=== PATIENT | female | born 1960 | race African-American/Black ===

== ENCOUNTER → 2016-06-10 | Outpatient (CLI) | payer OTHER | LOC: RAD 09:46 | PROVIDERS: ATTEND General Practice | DX: M25.562 Pain in left knee (principal) ==

== ENCOUNTER 2017-01-25 18:56 | Emergency (ER) | payer SELFPAY ==
[2017-01-25] MEDS ORDERED: CLINDAMYCIN 600 MG/D5W RTU 600 MG/50 ML RTUPB IV ONE (23:12)
[2017-01-25] MEDS ORDERED: ONDANSETRON HCL INJ/PF 4 MG/2 ML SDV IV ONE (23:12)
[2017-01-25] MEDS ORDERED: MORPHINE SULFATE 10 MG/ML INJ IV ONE (23:12)
[2017-01-26 00:15] LABS: ABSOLUTE EOSINOPHILS # (AUTO) 0.1 10^3/uL (0.0-0.6); ABSOLUTE LYMPHOCYTES (AUTO) 1.8 10^3/uL (0.5-4.7); ABSOLUTE MONOCYTES (AUTO) 0.4 10^3/uL (0.1-1.4); ABSOLUTE NEUT (AUTO) 4.4 10^3/uL (1.7-8.2); BASOPHILS % (AUTO) 0.6 % (0-2); EOSINOPHILS % (AUTO) 1.8 % (0-6); HEMATOCRIT 41.2 % (36.0-47.0); HEMOGLOBIN 13.8 g/dL (12.0-15.5); HGB HCT DIFFERENCE 0.2; MEAN CORPUSCULAR HEMOGLOBIN 29.8 pg (27.0-33.4); MEAN CORPUSCULAR HGB CONC 33.6 g/dL (32.0-36.0); MEAN CORPUSCULAR VOLUME 89 fl (80-97); MONOCYTES % (AUTO) 6.4 % (3-13); RED BLOOD COUNT 4.64 10^6/uL (3.72-5.28); RED CELL DISTRIBUTION WIDTH 13.9 % (11.5-14.0); SEGMENTED NEUTROPHILS % (AUTO) 65.2 % (42-78); WHITE BLOOD COUNT 6.8 10^3/uL (4.0-10.5)
[2017-01-26 01:15] LABS: ALANINE AMINOTRANSFERASE 26 U/L (9-52); ALBUMIN 3.7 g/dL (3.5-5.0); ALKALINE PHOSPHATASE 159 U/L (38-126); ANION GAP 13 (5-19); ASPARTATE AMINO TRANSFERASE 13 U/L (14-36); BILIRUBIN,DIRECT 0.4 mg/dL (0.0-0.4); BILIRUBIN,TOTAL 0.4 mg/dL (0.2-1.3); BLOOD UREA NITROGEN 15 mg/dL (7-20); CALCIUM 9.6 mg/dL (8.4-10.2); CARBON DIOXIDE 24 mmol/L (22-30); CHLORIDE 108 mmol/L (98-107); CREATININE RESULT 0.73 mg/dL (0.52-1.25); GLUCOSE 178 mg/dL (75-110); POTASSIUM 4.1 mmol/L (3.6-5.0); SODIUM 144.6 mmol/L (137-145); TOTAL PROTEIN 7.5 g/dL (6.3-8.2)
[2017-01-26] MEDS ORDERED: KETOROLAC TROMETHAMINE INJ/PF 30 MG/1 ML SDV IV ONE (03:12)
[2017-01-26] MEDS ORDERED: OXYCODONE-ACETAMINOPHEN 5-325 MG TABLET PO ONE (03:12)
--- NOTE | 2017-01-26 03:23 | RADIOLOGY REPORT (SQ) ---
EXAM DESCRIPTION: CT FACIAL AREA WITH COMPLETED DATE/TIME: 01/26/2017 2:43 am REASON FOR STUDY: ? abscess right mandibular/submandibular area. COMPARISON: None. TECHNIQUE: Post contrast images through the facial bones and orbits windowed for bone and soft tissu e. Additional coronal and sagittal reconstructed images reviewed. All images stored on PACS. All CT scanners at this facility use dose modulation, iterative reconstruction, and/or weight based d osing when appropriate to reduce radiation dose to as low as reasonably achievable (ALARA). [facility]: Dose Right [facility]: CareDose [facility]: Dose Right [facility]: Teradose 4D [facility]: [employer] CONTRAST TYPE AND DOSE: contrast/concentration: Isovue 370.00 mg/ml; Total Contrast Delivered: 75.0 ml; Total Saline Delivered: 55.1 ml RENAL FUNCTION: Creatinine 0.7 RADIATION DOSE: Up-to-date CT equipment and radiation dose reduction techniques were employed. CTDIv ol: 12.3 mGy. DLP: 272 mGy-cm. . LIMITATIONS: None. FINDINGS: FACIAL BONES: No fracture or bone lesion. ORBITS: Intact. No fracture. Symmetric intact globes and retroorbital soft tissues. PARANASAL SINUSES: Clear. No significant mucosal thickening, mass or fluid. No nasal polyps. Maxilla ry sinus outlets are patent. SOFT TISSUES: No mass or edema. No abnormal enhancement. INFERIOR BRAIN: Limited view. No acute findings. OTHER: Mild bilateral submandibular and mild submental lymphadenopathy includes a 1.2 x 0.7 cm right submandibular lymph node, image 52 of series 2. Numerous small periapical lucencies of remaining den tition throughout the mandible and maxilla may indicate small periapical abscesses measuring up to 0. 8 cm in the left paracentral anterior maxilla and 0.4 cm in the right paracentral anterior mandible a nd 0.8 cm associated with a right mandibular molar are, image 43 of series 2. Partially edentulous. IMPRESSION: Multiple scattered periapical abscesses (periapical rarefying osteitis) pattern. Mild b ilateral submandibular heads and submental lymphadenopathy. COMMENT: Discussed with ILSA CALIX MD at03:13 on 01/26/2017. TECHNICAL DOCUMENTATION: JOB ID: [id number] Quality ID # [id number]: Final reports with documentation of one or more dose reduction techniques (e.g., Au tomated exposure control, adjustment of the mA and/or kV according to patient size, use of iterative reconstruction technique) [address] [employer] All Rights Reserved
--- NOTE | 2017-01-26 03:54 | ER Document Report ---
ED General - General Chief Complaint: Abscess Stated Complaint: POSSIBLE ABSCESS Time Seen by Provider: 01/25/17 23:11 Mode of Arrival: Ambulatory Information source: Patient Notes: This is a 56-year-old female with a history of high blood pressure and insulin requiring diabetes and significant dental caries who presents to the emergency room with to the right mandible and swelling to the lower face. Patient denies fever. The pain is been going on for the last couple of days. TRAVEL OUTSIDE OF THE [place] IN LAST 30 DAYS: No - HPI Onset: Last week Onset/Duration: Gradual Quality of pain: Dull Severity: Moderate Pain Level: 2 Associated symptoms: denies: Chills, Fever, Shortness of breath Exacerbated by: Denies Relieved by: Denies Similar symptoms previously: Yes Recently seen / treated by doctor: No - Related Data Allergies/Adverse Reactions: tramadol [Tramadol] Adverse Reaction (Intermediate, Verified 03/19/12 14:39) Past Medical History - General Information source: Patient - Social History Smoking Status: Never Smoker Cigarette use (# per day): No Chew tobacco use (# tins/day): No Frequency of alcohol use: None Drug Abuse: None Lives with: Family Family History: Reviewed & Not Pertinent Patient has suicidal ideation: No Patient has homicidal ideation: No - Past Medical History Cardiac Medical History: Reports: Hx Hypertension Pulmonary Medical History: Reports: None EENT Medical History: Reports: Other - Dental caries Endocrine Medical History: Reports: Hx Diabetes Mellitus Type 2 Renal/ Medical History: Reports: None Malignancy Medical History: Reports: None GI Medical History: Reports: None Musculoskeltal Medical History: Reports None Skin Medical History: Reports None Psychiatric Medical History: Reports: None Traumatic Medical History: Reports: None Surgical Hx: Negative - Immunizations Immunizations up to date: Yes Hx Diphtheria, Pertussis, Tetanus Vaccination: Yes Review of Systems - Review of Systems Constitutional: denies: Chills, Fever EENT: No symptoms reported. denies: Throat pain Cardiovascular: No symptoms reported Respiratory: No symptoms reported Gastrointestinal: No symptoms reported Genitourinary: No symptoms reported Female Genitourinary: No symptoms reported Musculoskeletal: No symptoms reported Skin: No symptoms reported Hematologic/Lymphatic: No symptoms reported Neurological/Psychological: No symptoms reported Physical Exam - Vital signs Notes: Physical exam: GENERAL: 56-year-old female, alert and oriented 3, no acute distress HEAD: Atraumatic, normocephalic. EYES: Pupils equal round and reactive to light, extraocular movements intact, sclera anicteric, conjunctiva are normal. ENT: Patient has significant dental caries to the lower teeth. There is tenderness along the caries along the canines as well as the premolars and molars. Is no obvious swelling in the floor the mouth. There is tenderness over the teeth that are present. There is no pus drainage. Moist mucous membranes. Patient swallows without difficulty. NECK: The submandibular area is soft without any fluctuance. Normal range of motion, supple without lymphadenopathy. No stridor. LUNGS: Breath sounds clear to auscultation bilaterally and equal. No wheezes rales or rhonchi. HEART: Regular rate and rhythm without murmurs, rubs or gallops. ABDOMEN: Soft, normoactive bowel sounds. No tenderness to palpation. No guarding, no rebound. No masses appreciated. EXTREMITIES: Normal range of motion, no pitting or edema. No clubbing or cyanosis. NEUROLOGICAL: Cranial nerves II through XII grossly intact. Normal speech, normal gait. PSYCH: Normal mood, normal affect. SKIN: Warm, Dry, normal turgor, no rashes or lesions noted. Course - Laboratory Result Diagrams: 01/25/17 23:50 01/25/17 23:50 Laboratory results interpreted by me: 01/25/17 23:50 Chloride 108 H Glucose 178 H AST 13 L Alkaline Phosphatase 159 H - Diagnostic Test Radiology reviewed: Image reviewed, Reports reviewed - CT with contrast of the face getting the soft tissues of the neck up in the jaw show a lot of apical tooth disease without any abscess extending into the soft tissues of the neck. Discharge - Discharge Clinical Impression: Dental caries Condition: Stable Disposition: HOME, SELF-CARE Instructions: Dentist, Oral Narcotic Medication ([facility]), Toothache ([facility]) Additional Instructions: As we discussed, he will need to take an antibiotic for the next week. I do need you to follow-up with your dentist. I left A prescription for both clindamycin (the antibiotic) and the pain medicine. Also take ibuprofen 600 mg every 6 hours and you can take Tylenol every 4-6 hours. I wrote a prescription for your blood pressure medicine as well as the insulin for sliding scale. Left the number for primary care doctor: Dr. Brown who is affiliated with this hospital. Return to the emergency room for worsening pain, swelling or any concerns or getting worse. Prescriptions: Oxycodone HCl 5 mg PO Q6HP PRN #25 tablet PRN Reason: Clindamycin HCl 300 mg PO Q6 #28 capsule Insulin Regular, Human [Novolin R (Reg) Insulin 100 unit/mL] 10 unit SUBCUT .SLD SCALE #10 ml Valsartan [Diovan 160 mg Tablet] 160 mg PO DAILY #30 tablet Referrals: LUCIANA BROWN MD [ACTIVE STAFF] - Follow up as needed (This is the number of a good primary care doctor for diabetes as well as blood pressure)
[2017-01-26 04:42] VITALS: BP 143/98
== END 2017-01-26 04:37 | disposition home or self-care (01) ==
LOC: ER 18:56
DX: K02.9 Dental caries, unspecified (principal); I10 Essential (primary) hypertension; E11.9 Type 2 diabetes mellitus without complications; Z88.6 Allergy status to analgesic agent
CPT/HCPCS: 99283; 96375; 96365; 36415; 87040; 85025; 80053; 70487; J1885; J2270; J2405

== ENCOUNTER 2017-10-09 22:03 | Inpatient (IN) | payer MEDICAID ==
[2017-10-09] MEDS ORDERED: ONDANSETRON HCL INJ/PF 4 MG/2 ML SDV IV ONE (23:11)
[2017-10-09] MEDS ORDERED: METOCLOPRAMIDE HCL ORAL SOLN 10 MG/10 ML UDCUP PO ONE (23:11)
[2017-10-09] MEDS ORDERED: LIDOCAINE 2% VISCOUS SOLN 20 ML UDCUP PO ONE (23:11)
[2017-10-09] MEDS ORDERED: MAG HYDROX/AL HYDROX/SIMETH SUSP 30 ML UDCUP PO ONE (23:11)
--- NOTE | 2017-10-09 23:14 | ER Document Report ---
ED General - General Chief Complaint: Epigastric Pain Stated Complaint: ABDOMINAL PAIN Time Seen by Provider: 10/09/17 23:03 Notes: Patient is 57-year-old female presents with complaint of severe epigastric pain. 's been ongoing for a few days. She said occurs whenever she eats. Says like burning sensation from the epigastrium. She feels better if she burps. No history of abdominal surgeries. She is a diabetic. She does take omeprazole for acid reflux. No history of bleeding ulcers. No black or tarry stools. No bloody stools. No vomiting. Some nausea. No chest pain. No other complaints this time. TRAVEL OUTSIDE OF THE [place] IN LAST 30 DAYS: No - Related Data Allergies/Adverse Reactions: tramadol [Tramadol] Adverse Reaction (Intermediate, Verified 03/19/12 14:39) Past Medical History - Social History Smoking Status: Current Every Day Smoker Frequency of alcohol use: None Drug Abuse: None Family History: Reviewed & Not Pertinent Patient has suicidal ideation: No Patient has homicidal ideation: No - Past Medical History Cardiac Medical History: Reports: Hx Hypertension Endocrine Medical History: Reports: Hx Diabetes Mellitus Type 2 Renal/ Medical History: Denies: Hx Peritoneal Dialysis - Immunizations Immunizations up to date: Yes Hx Diphtheria, Pertussis, Tetanus Vaccination: Yes Review of Systems - Review of Systems Notes: My Normal Review Basic REVIEW OF SYSTEMS: CONSTITUTIONAL : Denies fever, chills, or sweats. Denies recent illness. EENT: Denies eye, ear, throat, or mouth pain or symptoms. Denies nasal or sinus congestion. CARDIOVASCULAR: Denies chest pain. RESPIRATORY: Denies cough, cold, or chest congestion. Denies shortness of breath, difficulty breathing, or wheezing. GASTROINTESTINAL: Epigastric abdominal pain. Denies nausea, vomiting, or diarrhea. GENITOURINARY: Denies difficulty urinating, painful urination, burning, frequency, or blood in urine. MUSCULOSKELETAL: Denies neck or back pain or joint pain or swelling. SKIN: Denies rash or skin lesions. NEUROLOGICAL: Denies altered mental status or loss of consciousness. Denies headache. Denies weakness or paralysis or loss of use of either side. Denies problems with gait or speech. Denies sensory or motor loss. ALL OTHER SYSTEMS REVIEWED AND NEGATIVE. Physical Exam - Vital signs Vitals: Temp Pulse Resp BP Pulse Ox 98.7 F 96 18 157/92 H 97 10/09/17 22:10 10/09/17 22:10 10/09/17 22:10 10/09/17 22:10 10/09/17 22:10 - Notes Notes: General Appearance: Well nourished, alert, cooperative, no acute distress, mild obvious discomfort. Vitals: reviewed, See vital signs table. Head: no swelling or tenderness to the head Eyes: PERRL, EOMI, Conjuctiva clear Mouth: No decreasd moisture Lungs: No wheezing, No rales, No rhonci, No accessory muscle use, good air exchange bilaterally. Heart: Normal rate, Regular rythm, No murmur, no rub Abdomen: Normal BS, soft, No rigidity, mild to moderate epigastric abdominal tenderness to palpation. Remainder of abdomen is nontender., No guarding, no rebound, no abdominal masses, no organomegaly Extremities: strength 5/5 in all extremities, good pulses in all extremities, no swelling or tenderness in the extremities, no edema. Skin: warm, dry, appropriate color, no rash Neuro: speech clear, oriented x 3, normal affect, responds appropriately to questions. Course - Re-evaluation Re-evalutation: 10/10/17 03:29 Patient is feeling improved. Nausea is improved. Her pain is not severe and intense at this time. Her lipase is significantly elevated at just under 4000. Exact cause of her pancreatitis is not clear. She has not had excessive vomiting. She is not an alcoholic. She does not have any evidence of gallbladder disease. CT scan did not show any evidence of cyst or tumor mass in the pancreas. I did speak with Dr. Addison who is covering for Dr. Wilson. He agrees to admit the patient for further workup and treatment of her pancreatitis. Patient is agreeable to plan. Dictation of this chart was performed using voice recognition software; therefore, there may be some unintended grammatical errors. - Vital Signs Vital signs: Temp Pulse Resp BP Pulse Ox 98.7 F 96 18 157/92 H 97 10/09/17 22:10 10/09/17 22:10 10/09/17 22:10 10/09/17 22:10 10/09/17 22:10 - Laboratory Result Diagrams: 10/09/17 23:06 10/09/17 23:06 Laboratory results interpreted by me: 10/09/17 23:06 Glucose 163 H Direct Bilirubin 0.5 H Alkaline Phosphatase 142 H Total Protein 8.5 H Lipase 3852.0 H - EKG Interpretation by Me Additional EKG results interpreted by me: 10/10/17 00:08 EKG is reviewed and interpreted by me. EKG shows normal sinus rhythm with a rate of [address] segment elevation or depression. Small T-wave inversions in lead I and aVL. AK interval, QRS duration, QTc intervals are within normal range. No old EKG available for comparison. Discharge - Discharge Clinical Impression: Pancreatitis Qualifiers: Chronicity: acute Pancreatitis type: unspecified pancreatitis type Acute pancreatitis complication: unspecified Qualified Code(s): K85.90 - Acute pancreatitis without necrosis or infection, unspecified Condition: Stable Disposition: ADMITTED OBSERVATION Admitting Provider: Steve Unit Admitted: Medical Floor
[2017-10-09 23:19] LABS: ABSOLUTE BASOPHILS # (AUTO) 0.1 10^3/uL (0.0-0.2); ABSOLUTE EOSINOPHILS # (AUTO) 0.1 10^3/uL (0.0-0.6); ABSOLUTE LYMPHOCYTES (AUTO) 1.9 10^3/uL (0.5-4.7); ABSOLUTE MONOCYTES (AUTO) 0.5 10^3/uL (0.1-1.4); ABSOLUTE NEUT (AUTO) 4.7 10^3/uL (1.7-8.2); BASOPHILS % (AUTO) 0.9 % (0-2); EOSINOPHILS % (AUTO) 1.2 % (0-6); HEMATOCRIT 42.1 % (36.0-47.0); HEMOGLOBIN 13.9 g/dL (12.0-15.5); LYMPHOCYTES % (AUTO) 25.9 % (13-45); MEAN CORPUSCULAR HEMOGLOBIN 28.5 pg (27.0-33.4); MEAN CORPUSCULAR HGB CONC 33.1 g/dL (32.0-36.0); MEAN CORPUSCULAR VOLUME 86 fl (80-97); MONOCYTES % (AUTO) 6.7 % (3-13); PLATELET COUNT 263 10^3/uL (150-450); RED BLOOD COUNT 4.89 10^6/uL (3.72-5.28); SEGMENTED NEUTROPHILS % (AUTO) 65.3 % (42-78); TOTAL CELLS COUNTED % (AUTO) 100 %; WHITE BLOOD COUNT 7.3 10^3/uL (4.0-10.5)
[2017-10-09 23:37] LABS: ALANINE AMINOTRANSFERASE 26 U/L (9-52); ALBUMIN 4.2 g/dL (3.5-5.0); ALKALINE PHOSPHATASE 142 U/L (38-126); ANION GAP 12 (5-19); ASPARTATE AMINO TRANSFERASE 22 U/L (14-36); BILIRUBIN,DIRECT 0.5 mg/dL (0.0-0.4); BILIRUBIN,TOTAL 0.6 mg/dL (0.2-1.3); BLOOD UREA NITROGEN 11 mg/dL (7-20); CARBON DIOXIDE 24 mmol/L (22-30); CHLORIDE 107 mmol/L (98-107); GLUCOSE 163 mg/dL (75-110); POTASSIUM 4.3 mmol/L (3.6-5.0); SODIUM 143.2 mmol/L (137-145); TOTAL PROTEIN 8.5 g/dL (6.3-8.2)
[2017-10-10] MEDS ORDERED: DIPHENHYDRAMINE HCL 50 MG/ML VIAL IV ONE (00:58)
[2017-10-10] MEDS ORDERED: NORMAL SALINE 1000 ML 1,000 ML IV ONE (00:59)
[2017-10-10] MEDS ORDERED: METHYLPREDNISOLONE INJ 125 MG/2 ML SDV IV ONE (00:59)
--- NOTE | 2017-10-10 01:34 | RADIOLOGY REPORT (SQ) ---
EXAM DESCRIPTION: CT ABDOMEN PELVIS WITH IV CONTRAST CLINICAL HISTORY: 57 years Female, elevated lipase, abdominal pain Comparison: None. Technique: IV contrast. Coronal and sagittal reformat. This exam was performed according to our departmental dose-optimization program, which includes automated exposure control, adjustment of the mA and/or kV according to patient size and/or use of iterative reconstruction technique.[facility]: Dose Right [facility]: CareDose [facility]: Dose Right [facility]: Teradose 4D [facility]: [employer] LIMITATIONS: None. Findings: No free fluid. Normal appendix. 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 Atherosclerosis. Mild lower lumbar spondylosis. Inferior thorax, liver, gallbladder, pancreas, spleen, adrenals, renal system, gastrointestinal tract, pelvic organs, lymphatics, vasculature, and musculoskeleton appear otherwise unremarkable. IMPRESSION: No acute findings.
--- NOTE | 2017-10-10 03:19 | RADIOLOGY REPORT (SQ) ---
EXAM DESCRIPTION: US ABDOMEN DOPPLER LIMITED CLINICAL HISTORY: 57 years Female, RUQ, pancreatitis Comparison: CT, same day. LIMITATIONS: None. FINDINGS: Gallbladder, negative sonographic Garcia's test, mild hepatic steatosis, a 0.5-cm diameter common bile duct, no intrahepatic ductal dilation, 13-cm right kidney, partially obscured pancreas, visualized vasculature/abdominal aorta, and no significant ascites as correlated with CT appear otherwise unremarkable. IMPRESSION: No acute findings. Hepatic steatosis.
[2017-10-10] MEDS ORDERED: DEXTROSE 50%-WATER 25 GM/50 ML DISP.SYRIN IV PRN ×4 (04:25→10:54)
[2017-10-10] MEDS ORDERED: GLUCAGON,HUMAN RECOMB 1 MG INJ SUBCUT PRN (04:25)
[2017-10-10] MEDS ORDERED: DEXTROSE 40% GEL 15 GM TUBE PO PRN ×4 (04:25→10:54)
[2017-10-10] MEDS ORDERED: DEXTROSE 5%-NORMAL SALINE 1,000 ML IV PRN (04:40)
--- NOTE | 2017-10-10 08:47 | EKG REPORT ---
SEVERITY:- ABNORMAL ECG - SINUS RHYTHM LEFT ATRIAL ABNORMALITY PROBABLE LEFT VENTRICULAR HYPERTROPHY : Confirmed by: Sean Ogden MD 10-Oct-2017 08:46:43
[2017-10-10] MEDS: HYDROMORPHONE HCL INJ/PF 2 MG/ML AMPULE IV PRN ×2 (09:33→22:52)
[2017-10-10] MEDS ORDERED: GLUCAGON,HUMAN RECOMB 1 MG INJ IM PRN (10:54)
[2017-10-10] MEDS ORDERED: (PENDING PHARMACY ID) (Insulin Degludec [Tresiba Flextouch U-100] 30 UNIT) SQ SCH (11:00)
[2017-10-10] MEDS ORDERED: LANSOPRAZOLE 15 MG TAB.RAP.DR PO ONE (11:15)
[2017-10-10] MEDS ORDERED: LISINOPRIL 10 MG TABLET PO ONE (11:30)
[2017-10-10 11:41] LABS: INTERNATIONAL RATION (INR) 0.91; PROTHROMBIN TIME 12.7 SEC (11.4-15.4)
[2017-10-10 11:42] LABS: PARTIAL THROMBOPLASTIN TIME 27.8 SEC (23.5-35.8)
[2017-10-10] MEDS ORDERED: ENOXAPARIN SODIUM INJ 40 MG/0.4 ML DISP.SYRIN SUBCUT ONE (11:45)
[2017-10-10 11:53] LABS: LIPASE 733.1 U/L (23-300); PHOSPHORUS 4.4 mg/dL (2.5-4.5)
[2017-10-10] MEDS: NORMAL SALINE 1000 ML 1,000 ML IV PRN ×2 (12:02→22:53)
[2017-10-10 12:18] LABS: FREE T4 (FREE THYROXINE) 1.78 ng/dL (0.78-2.19)
[2017-10-10 12:19] LABS: CREATINE KINASE MB 0.49 ng/mL (<4.55)
[2017-10-10 12:23] LABS: TROPONIN I < 0.012 ng/mL
[2017-10-10 12:31] LABS: THYROID STIMULATING HORMONE 0.35 uIU/mL (0.47-4.68)
[2017-10-10] MEDS: INSULIN LISPRO 100 UNIT/ML 3 ML VIAL SUBCUT PRN ×3 (13:25→22:11)
--- NOTE | 2017-10-10 14:58 | PDOC H&P ---
History of Present Illness Admission Date/PCP: 10/10/17 03:34 History of Present Illness: AFR[place] BROWNING is a 57 year old female, She has a history of morbid obesity, type 2 diabetes mellitus, she came to the emergency room for evaluation of severe epigastric pain, in the emergency room a CAT scan of the abdomen and pelvis was done, it was negative for any acute pathology, she was found to have elevated serum lipase, 3852. The ultrasound of the gallbladder was negative for gallstones. She denies any passage of black tarry stool she unfortunately smoke cigarettes Past Medical History Cardiac Medical History: Reports: Hypertension Endocrine Medical History: Reports: Diabetes Mellitus Type 2, Obesity Psychiatric Medical History: Denies: Depression Social History Smoking Status: Current Every Day Smoker Cigars Per Day: 10 Last Time Smoked: 10/09/17 Frequency of Alcohol Use: None Hx Recreational Drug Use: No - Advance Directive Resuscitation Status: Full Code Family History Family History: Reviewed & Not Pertinent Parental Family History Reviewed: Yes Children Family History Reviewed: Yes Sibling(s) Family History Reviewed.: Yes Medication/Allergy Home Medications: Insulin Degludec [Tresiba Flextouch U-100] 30 unit SQ DAILY 10/10/17 Lisinopril [Prinivil 40 mg Tablet] 40 mg PO DAILY 10/10/17 Metformin HCl [Metformin HCl] 500 mg PO ONCE PRN 10/10/17 Omeprazole [Omeprazole] 20 mg PO DAILY 10/10/17 Tramadol HCl [Ultram 50 mg Tablet] 50 mg PO Q6HP PRN 10/10/17 Allergies/Adverse Reactions: tramadol [Tramadol] Adverse Reaction (Intermediate, Verified 10/10/17 03:43) Review of Systems Constitutional: ABSENT: chills, fever(s), headache(s), weight gain, weight loss Eyes: ABSENT: visual disturbances Ears: ABSENT: hearing changes Cardiovascular: ABSENT: chest pain, dyspnea on exertion, edema, orthropnea, palpitations Respiratory: ABSENT: cough, hemoptysis Gastrointestinal: PRESENT: abdominal pain. ABSENT: constipation, diarrhea, hematemesis, hematochezia, nausea, vomiting Genitourinary: ABSENT: dysuria, hematuria Musculoskeletal: ABSENT: joint swelling Integumentary: ABSENT: rash, wounds Neurological: ABSENT: abnormal gait, abnormal speech, confusion, dizziness, focal weakness, syncope Psychiatric: ABSENT: anxiety, depression, homidical ideation, suicidal ideation Endocrine: ABSENT: cold intolerance, heat intolerance, menstrual abnormalities, polydipsia, polyuria Hematologic/Lymphatic: ABSENT: easy bleeding, easy bruising, lymphadenopathy Physical Exam Vital Signs: Temp Pulse Resp BP Pulse Ox 98.4 F 72 18 140/75 H 99 10/10/17 11:24 10/10/17 11:24 10/10/17 11:24 10/10/17 11:24 10/10/17 11:24 Intake & Output 10/09/17 10/10/17 10/11/17 06:59 06:59 06:59 Weight 121.2 kg General appearance: PRESENT: no acute distress, well-developed, well-nourished Head exam: PRESENT: atraumatic, normocephalic Eye exam: PRESENT: conjunctiva pink, EOMI, PERRLA Ear exam: PRESENT: normal external ear exam Mouth exam: PRESENT: moist, tongue midline Neck exam: PRESENT: full ROM Respiratory exam: PRESENT: clear to auscultation prateek Cardiovascular exam: PRESENT: RRR, +S1, +S2 Pulses: PRESENT: normal dorsalis pedis pul, +2 pedal pulses bilateral Vascular exam: PRESENT: normal capillary refill GI/Abdominal exam: PRESENT: normal bowel sounds, soft, tenderness Rectal exam: PRESENT: deferred Neurological exam: PRESENT: alert, awake, oriented to person, oriented to place , oriented to time, oriented to situation, CN II-XII grossly intact Psychiatric exam: PRESENT: appropriate affect, normal mood Skin exam: PRESENT: dry, intact, warm Results Laboratory Results: 10/10/17 10/10/17 10/10/17 11:09 11:09 11:09 Phosphorus 4.4 Ammonia < 8.7 L Amylase 362 H Lipase 733.1 H TSH 0.35 L Free T4 1.78 10/10/17 10/10/17 10/10/17 11:09 11:09 11:09 Creatine Kinase 85 CK-MB (CK-2) 0.49 Troponin I < 0.012 NT-Pro-B Natriuret Pep 46 Impressions: Abdomen/Pelvis CT 10/10/17 00:20 IMPRESSION: No acute findings. Abdomen Ultrasound 10/10/17 01:36 IMPRESSION: No acute findings. Hepatic steatosis. Assessment & Plan - Diagnosis (1) Acute pancreatitis Qualifiers: Pancreatitis type: unspecified pancreatitis type Acute pancreatitis complication: no infection or necrosis Qualified Code(s): K85.90 - Acute pancreatitis without necrosis or infection, unspecified Is this a current diagnosis for this admission?: Yes Plan: She is admitted for the management of acute pancreatitis, she does not drink alcohol, there is no gallstones, she is no vomiting, there is no reason to keep n.p.o., she will eat regular diet as tolerated ,pain control with Dilaudid. The etiology of the pancreatitis is not clear (2) Diabetes mellitus type 2 in obese Is this a current diagnosis for this admission?: Yes
[2017-10-10 17:49] LABS: CREATINE KINASE MB 0.37 ng/mL (<4.55)
[2017-10-10 17:54] LABS: TROPONIN I < 0.012 ng/mL
[2017-10-10 22:38] LABS: APPEARANCE,URINE CLEAR; BILIRUBIN,URINE NEGATIVE (NEGATIVE); COLOR,URINE YELLOW; GLUCOSE, URINE 150 mg/dL (NEGATIVE); KETONES,URINE NEGATIVE (NEGATIVE); LEUKOCYTE ESTERASE,URINE NEGATIVE (NEGATIVE); NITRITE,URINE NEGATIVE (NEGATIVE); PROTEIN,URINE NEGATIVE (NEGATIVE); URINE SPECIFIC GRAVITY 1.025; UROBILINOGEN,URINE NEGATIVE mg/dL (<2.0)
[2017-10-10 22:52] LABS: URINE AMPHETAMINES SCREEN NEGATIVE; URINE BARBITURATES SCREEN NEGATIVE; URINE BENZODIAZEPINES SCREEN NEGATIVE; URINE COCAINE SCREEN NEGATIVE; URINE MARIJUANA (THC) SCREEN NEGATIVE; URINE METHADONE SCREEN NEGATIVE; URINE PHENCYCLIDINE SCREEN NEGATIVE
[2017-10-10 23:55] LABS: CREATINE KINASE MB 0.44 ng/mL (<4.55)
[2017-10-10 23:58] LABS: TROPONIN I < 0.012 ng/mL
[2017-10-11] MEDS ORDERED: LANSOPRAZOLE 15 MG TAB.RAP.DR PO SCH (06:00)
[2017-10-11 07:03] LABS: ABSOLUTE BASOPHILS # (AUTO) 0.1 10^3/uL (0.0-0.2); ABSOLUTE MONOCYTES (AUTO) 0.5 10^3/uL (0.1-1.4); ABSOLUTE NEUT (AUTO) 4.1 10^3/uL (1.7-8.2); BASOPHILS % (AUTO) 0.8 % (0-2); EOSINOPHILS % (AUTO) 0.4 % (0-6); HEMATOCRIT 37.5 % (36.0-47.0); HEMOGLOBIN 12.4 g/dL (12.0-15.5); LYMPHOCYTES % (AUTO) 29.8 % (13-45); MEAN CORPUSCULAR HEMOGLOBIN 28.7 pg (27.0-33.4); MEAN CORPUSCULAR VOLUME 87 fl (80-97); MONOCYTES % (AUTO) 7.9 % (3-13); PLATELET COUNT 242 10^3/uL (150-450); RED BLOOD COUNT 4.32 10^6/uL (3.72-5.28); RED CELL DISTRIBUTION WIDTH 13.9 % (11.5-14.0); SEGMENTED NEUTROPHILS % (AUTO) 61.1 % (42-78); TOTAL CELLS COUNTED % (AUTO) 100 %; WHITE BLOOD COUNT 6.7 10^3/uL (4.0-10.5)
[2017-10-11 07:26] LABS: ALANINE AMINOTRANSFERASE 24 U/L (9-52); ALBUMIN 3.1 g/dL (3.5-5.0); ALKALINE PHOSPHATASE 105 U/L (38-126); ASPARTATE AMINO TRANSFERASE 11 U/L (14-36); BILIRUBIN,DIRECT 0.2 mg/dL (0.0-0.4); BILIRUBIN,TOTAL 0.2 mg/dL (0.2-1.3); TOTAL PROTEIN 6.4 g/dL (6.3-8.2); TRIGLYCERIDES 113 mg/dL (<150)
[2017-10-11] MEDS ORDERED: LISINOPRIL 10 MG TABLET ONE (07:28)
[2017-10-11 07:37] LABS: DIRECT LDL 107 mg/dL (<100)
[2017-10-11] MEDS ORDERED: LISINOPRIL 10 MG TABLET PO SCH (10:00)
[2017-10-11] MEDS ORDERED: ENOXAPARIN SODIUM INJ 40 MG/0.4 ML DISP.SYRIN SUBCUT SCH (10:00)
[2017-10-11 11:54] VITALS: BP 187/102
[2017-10-11] MEDS: INSULIN LISPRO 100 UNIT/ML 3 ML VIAL SUBCUT PRN (12:05)
[2017-10-11] MEDS ORDERED: AMLODIPINE BESYLATE 10 MG TABLET PO ONE (14:00)
--- NOTE | 2017-10-11 14:38 | PDOC DISCHARGE SUMMARY ---
General - Admit/Disc Date/PCP Admission Date/Primary Care Provider: 10/10/17 03:34 Discharge Date: 10/11/17 - Discharge Diagnosis (1) Acute pancreatitis Is this a current diagnosis for this admission?: Yes (2) Diabetes mellitus type 2 in obese Is this a current diagnosis for this admission?: Yes (3) Hypertensive urgency Is this a current diagnosis for this admission?: Yes - Additional Information Resuscitation Status: Full Code Prescriptions: Amlodipine Besylate [Norvasc 10 mg Tablet] 10 mg PO DAILY #30 tablet Home Medications: Insulin Degludec [Tresiba Flextouch U-100] 30 unit SQ DAILY 10/10/17 Metformin HCl 500 mg PO ONCE PRN 10/10/17 Omeprazole 20 mg PO DAILY 10/10/17 Tramadol HCl [Ultram 50 mg Tablet] 50 mg PO Q6HP PRN 10/10/17 Amlodipine Besylate [Norvasc 10 mg Tablet] 10 mg PO DAILY #30 tablet 10/11/17 Lisinopril [Prinivil 40 mg Tablet] 40 mg PO BID #60 10/11/17 History of Present Illness History of Present Illness: AFRICA BROWNING is a 57 year old female, She has a history of morbid obesity, type 2 diabetes mellitus, she came to the emergency room for evaluation of severe epigastric pain, in the emergency room a CAT scan of the abdomen and pelvis was done, it was negative for any acute pathology, she was found to have elevated serum lipase, 3852. The ultrasound of the gallbladder was negative for gallstones. She denies any passage of black tarry stool she unfortunately smoke cigarettes Hospital Course Hospital Course: Patient was admitted for the management of acute pancreatitis, the ultrasound of the gallbladder was negative for gallstones, the CAT scan of the abdomen and pelvis showed a normal pancreas. There was no vomiting, regular diet was resumed soon after admission, she tolerated regular diet without any discomfort. The blood pressure was elevated in the hypertensive urgency range, she is advised to increase lisinopril to twice a day, she presently takes lisinopril 40 mg once a day this will be adjusted to twice a day she was also started on amlodipine. She presently stable she is pain-free she be discharged home today Physical Exam Vital Signs: Temp Pulse Resp BP Pulse Ox 98.0 F 80 16 187/102 H 97 10/11/17 11:49 10/11/17 11:53 10/11/17 11:49 10/11/17 11:53 10/11/17 11:49 Intake & Output 10/10/17 10/11/17 10/12/17 06:59 06:59 06:59 Intake Total 150 Balance 150 Weight 126.3 kg General appearance: PRESENT: no acute distress, well-developed, well-nourished Head exam: PRESENT: atraumatic, normocephalic Eye exam: PRESENT: conjunctiva pink, EOMI, PERRLA Ear exam: PRESENT: normal external ear exam Mouth exam: PRESENT: moist, tongue midline Neck exam: PRESENT: full ROM Cardiovascular exam: PRESENT: RRR, +S1, +S2 Pulses: PRESENT: normal dorsalis pedis pul, +2 pedal pulses bilateral Vascular exam: PRESENT: normal capillary refill GI/Abdominal exam: PRESENT: normal bowel sounds, soft Rectal exam: PRESENT: deferred Neurological exam: PRESENT: alert, awake, oriented to person, oriented to place , oriented to time, oriented to situation, CN II-XII grossly intact Psychiatric exam: PRESENT: appropriate affect, normal mood Skin exam: PRESENT: dry, intact, warm Results Laboratory Results: 10/11/17 06:25 10/10/17 10/11/17 10/11/17 22:15 06:25 06:25 WBC 6.7 RBC 4.32 Hgb 12.4 Hct 37.5 MCV 87 MCH 28.7 MCHC 33.0 RDW 13.9 Plt Count 242 Seg Neutrophils % 61.1 Lymphocytes % 29.8 Monocytes % 7.9 Eosinophils % 0.4 Basophils % 0.8 Absolute Neutrophils 4.1 Absolute Lymphocytes 2.0 Absolute Monocytes 0.5 Absolute Eosinophils 0.0 Absolute Basophils 0.1 Magnesium 2.0 Total Bilirubin 0.2 AST 11 L ALT 24 Alkaline Phosphatase 105 Total Protein 6.4 Albumin 3.1 L Triglycerides 113 Cholesterol 196.30 LDL Cholesterol Direct 107 H VLDL Cholesterol 23.0 HDL Cholesterol 51 Urine Color YELLOW Urine Appearance CLEAR Urine pH 5.0 Ur Specific [place] 1.025 Urine Protein NEGATIVE Urine Glucose (UA) 150 H Urine Ketones NEGATIVE Urine Blood NEGATIVE Urine Nitrite NEGATIVE Ur Leukocyte Esterase NEGATIVE Urine WBC (Auto) 1 10/10/17 10/10/17 10/10/17 11:09 11:09 11:09 Creatine Kinase 85 CK-MB (CK-2) 0.49 Troponin I < 0.012 NT-Pro-B Natriuret Pep 46 10/10/17 10/10/17 10/10/17 17:05 17:05 23:14 Creatine Kinase 82 73 CK-MB (CK-2) 0.37 Troponin I < 0.012 NT-Pro-B Natriuret Pep 10/10/17 23:14 Creatine Kinase CK-MB (CK-2) 0.44 Troponin I < 0.012 NT-Pro-B Natriuret Pep Impressions: Abdomen/Pelvis CT 10/10/17 00:20 IMPRESSION: No acute findings. Abdomen Ultrasound 10/10/17 01:36 IMPRESSION: No acute findings. Hepatic steatosis. Qualifiers - * PATIENT BEING DISCHARGED WITH ANY OF THE FOLLOWING DIAGNOSIS: No
[2017-10-12] MEDS ORDERED: AMLODIPINE BESYLATE 10 MG TABLET PO SCH (10:00)
== END 2017-10-11 15:50 | disposition home or self-care (01) | DRG 439 ==
LOC: ER 22:03 → OBSVTOIN 10-10 03:34 → EH 10-10 03:34 → 2N 10-10 05:15
PROVIDERS: ADMIT Internal Medicine Geriatric Medicine; ATTEND Internal Medicine Geriatric Medicine
DX: K85.90 Acute pancreatitis without necrosis or infection, unspecified (principal); Z68.43 Body mass index [BMI] 50.0-59.9, adult; I16.0 Hypertensive urgency; E66.01 Morbid (severe) obesity due to excess calories; E11.9 Type 2 diabetes mellitus without complications; F17.210 Nicotine dependence, cigarettes, uncomplicated; I10 Essential (primary) hypertension; Z88.8 Allergy status to other drugs, medicaments and biological substances; Z79.4 Long term (current) use of insulin; Z79.899 Other long term (current) drug therapy
CPT/HCPCS: 36415; 74177; 76705; 80053; 80061; 80076; 80307; 81001; 82140; 82150; 82550; 82553; 82962; 83036; 83690; 83735; 83880; 84100; 84439; 84443; 84484; 85025; 85610; 85730; 87086; 93005; 93010; 93976; 96361; 96374; 96375; 99285; J1170; J1200; J1650; J1815; J2405; J2930; J3490; J7030

== ENCOUNTER → 2018-05-10 | Outpatient (CLI) | payer MEDICAID ==
--- NOTE | 2018-05-10 15:12 | WOMENS IMAGING REPORT ---
EXAM DESCRIPTION: 3D SCREENING MAMMO BILAT COMPLETED DATE/TIME: 05/10/2018 1:51 pm REASON FOR STUDY: SCREENING MAMMO Z12.31 ENCNTR SCREEN MAMMOGRAM FOR MALIGNANT NEOPLASM OF JESS COMPARISON: None. TECHNIQUE: Standard craniocaudal and mediolateral oblique views of each breast recorded using digita l acquisition and breast tomosynthesis. LIMITATIONS: None. FINDINGS: Findings present which are benign by mammographic criteria. No suspicious masses, calcifi cations or architectural distortion. Pertinent benign findings: Bilateral breast reduction. Read with the assistance of CAD. [facility] - R2 Cenova Version 1.3 .[facility] - R2 Cenova Version 1.3 .[facility] - R2 Cenova Version 2.4 .[facility] [place] R2 Cenova Version 2.4 .[facility] - R2 [employer] Version 9.2 Benign mammographic findings may include one or more of the following: Smooth masses, popcorn/rim/co arse calcifications, asymmetries, post-procedure changes, and lesions with long-standing stability. IMPRESSION: BENIGN MAMMOGRAPHIC FINDINGS. BIRADS 2 BREAST DENSITY: a. The breasts are almost entirely fatty. BIRAD: 2 BENIGN FINDING(S) RECOMMENDATION: RECOMMENDATION: ROUTINE SCREENING COMMENT: The patient has been notified of the results by letter per SA requirements. Additional no tification policies are in place for contacting patient with suspicious or incomplete findings. Quality ID #[id number]: The [employer] recommends an annual screening mammogram for women aged 40 years or over. This facility utilizes a reminder system to ensure that all patients receive reminder letters, and/or direct phone calls for appointments. This includes reminders for routine scr eening mammograms, diagnostic mammograms, or other Breast Imaging Interventions when appropriate. Th is patient will be placed in the appropriate reminder system. The [employer] (A[employer]) has developed recommendations for screening MRI of the breast s in certain patient populations, to be used in conjunction with mammography. Breast MRI surveillanc e may be appropriate for women with more than 20% lifetime risk of developing breast cancer as deter mined by genetic testing, significant family history of the disease, or history of mantle radiation f or Hodgkins Disease. ACR Practice Guidelines 2008. DBT Technology DBT is a type of tomographic mammography. With conventional mammography, overlapping breast tissue ma y make lesions difficult to detect, even with good compression. DBT uses an x-ray tube that rotates a round the breast, taking images at different angles. These images are then combined to create thin sl ices of the breast that the radiologist can view as a 3D reconstruction. The Hologic unit can perform full-field digital mammograms (2D imaging); or DBT (3D imaging); or both, in a combination mode that quickly performs both the mammogram and the tomosynthesis scan while the breast is still compressed. PQRS 6045F: Fluoroscopic imaging is not utilized for breast tomosynthesis. TECHNICAL DOCUMENTATION: FINDING NUMBER: (1) ASSESSMENT: (1) JOB ID: [id number] [employer]- All Rights Reserved Reading location - IP/workstation name: [email or web address]
== END ==
LOC: WI 13:15
PROVIDERS: ATTEND Internal Medicine Geriatric Medicine
DX: Z12.31 Encounter for screening mammogram for malignant neoplasm of breast (principal)
CPT/HCPCS: 77063; 77067